=== PATIENT | female | born 1995 | race Caucasian/White ===

== ENCOUNTER 2019-11-08 10:36 | Outpatient (CLI) | payer OTHER, SELFPAY ==
--- NOTE | ~2019-11-08 | US_ITS ---
EXAMINATION: US OB follow up DATE: 11/08/2019 11:47 INDICATION: Gestational diabetes. Size greater than dates. TECHNIQUE: Real-time transabdominal obstetric ultrasound. FINDINGS: Comparison to multiple prior studies sequentially, with oldest reviewed study dated 019. There is a single living fetus in vertex presentation. The placenta is fundal without placenta previ a. cardiac activity and movement is noted with a heart rate of 133 beats per minute. T he amniotic fluid volume is normal. MENG is 13.3 cm. The following biometric data were obtained: BPD: 90mm corresponds to gestational age 36 weeks 3 days. Head circumference: 335mm corresponds to gestational age 38 weeks 2 days. Abdominal circumference: 333mm corresponds to gestational age 37 weeks 2 days. Femur length: 70mm corresponds to gestational age 36 weeks 0 days. Estimated weight: 3048grams using Hadlock method. IMPRESSION: 1. Single living fetus in vertex presentation with an estimated gestational age of 36 weeks 0 days b y inititial ultrasound. Appropriate interval growth. 2. Normal placenta. 3: Normal MENG measures 13.3 cm. Reviewed, dictated and finalized at location A. TRIMMER IMPRESSION: 1. Single living fetus in vertex presentation with an estimated gestational ag e of 36 weeks 0 days by inititial ultrasound. Appropriate interval growt h. 2. Normal placenta. 3: Normal MENG measures 13.3 cm.
== END 2019-11-08 10:37 | disposition home or self-care (01) ==
PROVIDERS: Visit Provider Obstetrics & Gynecology
DX: O24.414 Gestational diabetes mellitus in pregnancy, insulin controlled (principal); Z3A.36 36 weeks gestation of pregnancy
CPT/HCPCS: 76816

== ENCOUNTER 2019-11-23 10:13 | Observation (INO) | payer OTHER, SELFPAY ==
[2019-11-23] VITALS (7 sets, daily range): BP systolic 96–118; BP diastolic 56–80; PULSE 73–93
--- NOTE | ~2019-11-23 | US_ITS ---
EXAMINATION: US OB limited w BPP EXAM DATE: 11/23/2019 12:40 INDICATION: decelerations. Third trimester. TECHNIQUE: Pelvic obstetrical transabdominal sonogram was performed by a technologist. There are mu ltiple grayscale and Doppler images available for interpretation. Comparison is made to prior examina tion from 11/08/2019. FINDINGS: There is a single fetus identified in vertex presentation with a heart rate of 141 beats pe r minute. The placenta is located in the posterior fundal position. There is no sonographic evidence of retroplacental hemorrhage identified. The amniotic fluid index is 10.7 centimeters, which is norm al. BIOPHYSICAL PROFILE (performed by the technologist) breathing (30 sec sustained breathing in 30 minutes): 2 out of 2 movement (3 gross body movements in 30 minutes): 2 out of 2 tone (one episode of dvaopbc-ioccldxgw-dttmofk limb movement): 2 out of 2 Amniotic fluid pocket (2 cm): 2 out of 2 Total score: 8 out of 8 IMPRESSION: 1. Single fetus with heart rate of 141 bpm. 2. Normal biophysical profile score of 8 out of 8. 3. Normal EMNG 10.7 cm. Reviewed, dictated and finalized at location A. POSTER IMPRESSION: 1. Single fetus with heart rate of 141 bpm. 2. Normal biophysical profile score of 8 out of 8. 3. Normal MENG 10.7 cm.
--- NOTE | 2019-11-23 12:27 | OBADM ---
This patient, John Keane, admitted to the OB room OB Post 115 for observation. Patient/family oriented to hospital policies and general routines including ID bracelet, bed and alarms, visiting hours, pain management, procedures, bathroom and other care routines, personal items, smoking policy, room service/diet, and visiting hours. Patient/Family are encouraged to report perceived risks to care and to ask questions if they do not understand what they are told or what they should do.
--- NOTE | 2019-11-26 11:46 | PM.OBTRLD ---
OB - Triage/Final Diagnosis Final Diagnosis (1) heart deceleration: Status: Acute
== END 2019-11-23 13:20 | disposition home or self-care (01) ==
PROVIDERS: Admitting Provider Obstetrics & Gynecology; Visit Provider Obstetrics & Gynecology Gynecology
DX: O36.8330 Maternal care for abnormalities of the fetal heart rate or rhythm, third trimester, not applicable or unspecified (principal); Z3A.38 38 weeks gestation of pregnancy
CPT/HCPCS: 76815; 76819; G0378; G0379

== ENCOUNTER 2019-11-29 06:18 | Inpatient (IN) | payer OTHER, SELFPAY ==
[2019-11-29] VITALS (37 sets, daily range): BP systolic 97–139; BP diastolic 47–87; PULSE 62–102; RESP 14–18; TEMP 36.6–37.1; O2SAT 99–100; BMI 37.8
[2019-11-29 07:15] LABS: Glucose Point of Care 102 (65-105)
[2019-11-29] MEDS: LACTATED RINGERS 1,000 ML 125 ML IV CONT (07:28)
--- NOTE | 2019-11-29 08:06 | LDADM ---
This patient, John Keane, was admitted to Labor/Delivery/Recovery 104 on 11/29/19 at 06:18. Plans for labor, pain management and were discussed with patient. Patient/family oriented to hospital policies and general routines including ID bracelet, bed and alarms, visiting hours, pain management, procedures, bathroom and other care routines, personal items, smoking policy, room service/diet and guest tray routines, security routines, and visiting hours. Patient/Family are encouraged to report perceived risks to care and to ask questions if they do not understand what they are told or what they should do. See OBIX for further documentation.
[2019-11-29 09:12] LABS: Basophils Absolute Auto 0.1 K/mm3 (0.0-0.1); Basophils Percent Auto 0.5 % (0.2-1.2); Eosinophils Absolute Auto 0.1 K/mm3 (0-0.3); Eosinophils Percent Auto 1.3 % (0-4.4); Hematocrit 37.7 % (37.0-47.0); Hemoglobin 11.6 g/dL (12.0-15.0); Immature Granulocyte Absolute 0.06 K/mm3 (0.00-0.031); Immature Granulocyte Percent A 0.5 % (0-0.5); Lymphocytes Absolute Auto 2.27 K/mm3 (0.9-3.2); Lymphocytes Percent Auto 20.6 % (18.3-44.2); Mean Corpuscular HGB Conc 30.8 g/dl (32-36); Mean Corpuscular Hemoglobin 28.2 pg (26-34); Mean Corpuscular Volume 91.5 fl (80-100); Mean Platelet Volume 11.3 fl (7.4-10.4); Monocytes Absolute Auto 1.1 K/mm3 (0.1-0.6); Monocytes Percent Auto 10.3 % (2.6-8.5); Neutrophils Absolute Auto 7.4 K/mm3 (1.3-6.7); Neutrophils Percent Auto 66.8 % (45.5-73.1); Platelet Count Result 307 k/mm3 (150-375); Red Blood Count 4.12 M/mm3 (4.2-5.4); Red Cell Distribution Width 13.9 % (11.5-14.5)
--- NOTE | 2019-11-29 10:45 | WPDOBADMIT ---
Obstetrics - Admit Note Admission Note: record reviewed. No pertinent additions to the history and/or any subsequent changes in the physical findings that are not consistent with the expected course of the were found. Arom clear fluid /-2 Additions to the history and/or subsequent changes in the physical findings follow. None.
[2019-11-29 11:46] LABS: Glucose Point of Care 64 (65-105)
[2019-11-29 11:46] LABS: Glucose Point of Care 69 (65-105)
--- NOTE | 2019-11-29 13:00 | P.PCNOB_ITS ---
OB - Delivery Note Procedure Delivery date: 11/29/19 Procedure: events: Gestational Diabetes Intrapartal events: None Induction method: AROM and per pitocin protocol Delivery monitor: external FHT and external uterine Route of delivery: Laceration description: None Estimated blood loss (mL): 200 Anesthesia type: fentanyl Disposition: floor [place] Baby Date of : 11/29/19 Time of : 12:47 Weeks of gestation at delivery: 39 gender: Female Weight (pounds): 6 Weight (ounces): 11 presentation: vertex position: Left Occiput Anterior Placenta delivery description: Spontaneous cord vessel description: 3 Vessels score one minute: 8 score five minutes: 9
[2019-11-29] MEDS: IBUPROFEN 600 MG TABLET PO ×2 (13:55→23:12)
[2019-11-30 06:01] LABS: Glucose Point of Care 66 (65-105)
[2019-11-30 06:15] LABS: Hematocrit 32.2 % (37.0-47.0); Hemoglobin 10.5 g/dL (12.0-15.0)
[2019-11-30 08:00] VITALS: BP 113/77; PULSE 62; RESP 16; TEMP 36.8; O2SAT 99
--- NOTE | 2019-11-30 08:57 | P.PNOB_ITS ---
OB - PN: Subj Subjective Date/time seen: 11/30/19 08:57 Patient comments: no complaints feeding status: exclusively breast feeding Narrative: prefers to go home today OB - PN: Obj Data Labs CBC & Chem 7: 11/30/19 05:58 Labs: Laboratory Results - last 24 hr 11/29/19 11/29/19 11/29/19 06:52 06:52 10:29 WBC 11.0 H RBC 4.12 L Hgb 11.6 L Hct 37.7 MCV 91.5 MCH 28.2 MCHC 30.8 L RDW 13.9 Plt Count 307 MPV 11.3 H Immature Gran % (Auto) 0.5 Neut % (Auto) 66.8 Lymph % (Auto) 20.6 [place] % (Auto) 10.3 H Eos % (Auto) 1.3 Baso % (Auto) 0.5 Lymph # (Auto) 2.27 [place] # (Auto) 1.1 H Eos # (Auto) 0.1 Baso # (Auto) 0.1 Abs Immat Gran (auto) 0.06 H Absolute Neuts (auto) 7.4 H Absolute Nucleated RBC 0.0 Nucleated RBC % 0.0 POC Capillary Glucose 64 L Blood Type A Positive Antibody Screen Negative 11/29/19 11/30/19 11/30/19 11:41 05:58 05:58 WBC RBC Hgb 10.5 L Hct 32.2 L MCV MCH MCHC RDW Plt Count MPV Immature Gran % (Auto) Neut % (Auto) Lymph % (Auto) [place] % (Auto) Eos % (Auto) Baso % (Auto) Lymph # (Auto) [place] # (Auto) Eos # (Auto) Baso # (Auto) Abs Immat Gran (auto) Absolute Neuts (auto) Absolute Nucleated RBC Nucleated RBC % POC Capillary Glucose 69 66 Blood Type Antibody Screen OB - PN A/P Plan day: 1 Plan: routine care, discharge home, follow up 6 weeks and other (Plans POP. Rx Slynd to start in 3 wks) Time Spent With Patient Time: Total time spent is greater than 50% in coordination of care (as documented) at patient's floor/unit and/or counseling patient: Exam : Bimanual exam- vagina & uterus: other (Uterus firm, nt @U)
[2019-11-30] MEDS: IBUPROFEN 600 MG TABLET PO (09:17)
[2019-11-30] MEDS: MULTIVIT/MIN/PREN/FOL AC/IRON TABLET 1 TAB PO (09:18)
[2019-11-30 10:55] LABS: Rapid Plasma Reagin Non-Reactive (NonReactive)
--- NOTE | 2019-11-30 11:58 | PC.NURSE ---
Patient viewed the discharge video Mother & Baby Care, The First Two Weeks . Patient was given the opportunity and encouraged to ask questions. Patient verbalized understanding of information shared and has been given the mother/baby guide for home reference.
--- NOTE | 2019-11-30 13:15 | PC.NURSE ---
Mother called out for assist with feeding. Observed mother is able to independently latch with appropriate positioning/alignment. Reviewed positioning/alignment in cross cradle, holding breast in U hold and guided asymmetrical latch on. Discussed rational for each. Infant nursed eagerly, with steady draws and frequent swallowing noted. Reviewed signs of a correct latch, effective nursing and suck swallow ratio. was able to maintain latch without discomfort to mother. Demonstrated how to adjust latch more deeply while feeding. Nipple care reviewed. Mother voiced understanding of information shared. Reviewed feeding cues, frequencies, duration of feedings, feeding elimination flow sheet, and signs of adequate intake. Mother is feeding as required and waking to feed if needed. is currently meeting outcomes for weight, output, jaundice and feeding frequencies. Mother states she feels confident to continue effective at home. Reviewed transition to breast milk, signs of adequate intake, and engorgement/relief. Instructed to call ICP if intake/output less than required. Reviewed regular medications mother is taking. Information provided per Marsha. Reviewed community resources on the [facility] website and in the Mom/Baby guide. Information on outpatient services provided. Mother has no further questions at this time.
[2019-12-02 12:16] VITALS: BP 130/84; PULSE 76; RESP 20; TEMP 37
--- NOTE | 2019-12-25 09:31 | PM.OBDSVD ---
DS: Diagnosis Admitting Diagnosis Admitting Diagnosis: Encounter for supervision of normal , unspecified, third trimester OB - DS: Summary OB Procedures : NST OB Procedures Intrapartum: Spontaneous Vag Delivery OB Procedures: : None Peripartum Data Delivery Method: Natural Vaginal Laceration description: Perineal - 2nd Degree complications: none Time Spent with Patient Time attestation: Total time spent providing and/or coordinating discharge services: Discharge Plan Discharge Attending physician on discharge: Kimmy Boswell Discharging Clinician: Amrit Mata Patient Disposition: Home, Self-Care Activity: may shower and pelvic rest Diet: regular Discharge Instructions: Education: Mom and Baby Guide Given to: Mother Follow-Up: Call your delivering provider's office for an appointment to be seen in: 6 Weeks Mom and baby should come to the [facility] for the follow-up appointment. Appointment Date/Time: Monday, December 02, 2019 at 11:00 am What to expect at your follow-up visit: Blood Pressure Check Physical Assessment Call [phone] if you are unable to keep your appointment time. BREAST CARE: 1. Wear a snug supportive bra. 2. For engorgement discomfort: Breast Feeding: A. Apply warm moist washcloths B. Express milk as needed to relieve engorgement C. Wear loose clothing 3. For sore nipples: A. Identify correct latch-on B. Apply warm moist washcloths before and after nursing C. Air dry nipples after nursing D. May apply Lansinoh cream to nipples EPISIOTOMY/PERINEAL CARE: 1. Until bleeding stops, use your claire bottle after urinating 2. Change your pad frequently throughout the day 3. You may take sitz baths several times a day (fill your bathtub with warm water and soak for 20 minutes.) Do NOT bathe in the water 4. No tub baths until seen by your physician - You may shower ACTIVITY: 1. Rest as much as possible. 2. Do not exercise or lift anything heavier than your baby (such as laundry or other children.) 3. Avoid stairs or driving as much as possible. 4. Do not put anything into the vagina. No douching, tampons, or sexual activity until seen by physician. NOTIFY PHYSICIAN IF YOU HAVE ANY QUESTIONS OR IF ANY OF THE FOLLOWING SYMPTOMS OCCUR: 1. If your episiotomy or incision becomes red, swollen, or more painful than what you have experienced in the hospital. 2. If your vaginal bleeding becomes foul smelling. 3. If your vaginal bleeding becomes more heavy than a period or if your bleeding changes from pink to bright red. However, you may pass an occasional walnut-sized clot once or twice for the first week . 4. If you experience a sharp, shooting pain in you calves. 5. If you discover a hard, reddened area on your breast or if you experience flu-like symptoms. DIET: 1. Eat regular, well-balanced meals. 2. Drink plenty of fluids daily. For , drink to thirst. Stand Alone Forms: General Discharge Information Follow-up/Referrals: Amrit Mata MD [Physician] - 6 Weeks Discharge Medications: New Slynd 4 mg (28) tablet 4 mg PO DAILY 24 Days Qty: 24 RF: 6 Continued ergocalciferol (vitamin D2) [Vitamin D2] 1,250 mcg (50,000 unit) Capsule 50,000 unit PO WEEKLY RF: 0 PNV cmb#95-ferrous fumarate-FA [] 28 mg iron- 800 mcg Tablet 1 tablet PO DAILY RF: 0 Discontinued famotidine [Pepcid AC] 20 mg Tablet 20 mg PO BID RF: 0 Novolin N NPH U-100 Insulin 100 unit/mL Suspension 16 unit SUBCUT HS RF: 0 Date of admission: 11/29/19 06:18 Primary Care Provider: UNKNOWN,DOCTOR Admitting Provider: Amrit Mata Discharge Date/Time: 11/30/19 14:45 Attending physician on admission: Kimmy Boswell Condition: Stable
== END 2019-11-30 14:45 | disposition home or self-care (01) | DRG 560 ==
LOC: ANHLDR 09:52 → ANHOB2 11-30 09:00 → ANHLDR 12-02 11:30 → ANHOB2 12-02 11:30
PROVIDERS: Admitting Provider Obstetrics & Gynecology; Visit Provider Obstetrics & Gynecology Gynecology
DX: O24.429 Gestational diabetes mellitus in childbirth, unspecified control (principal); Z3A.39 39 weeks gestation of pregnancy; Z37.0 Single live birth; Z23 Encounter for immunization
CPT/HCPCS: 36415; 85014; 85018; 85025; 86592; 86850; 86900; 86901; A9270; J2590; J3010; J7120

== ENCOUNTER 2021-03-28 10:28 | Emergency (ER) | payer OTHER, SELFPAY ==
[2021-03-28 10:38] VITALS: BP 133/75; PULSE 74; RESP 16; TEMP 36.6; O2SAT 100
[2021-03-28 10:41] VITALS: BP 133/75; PULSE 74; RESP 16; TEMP 36.6; O2SAT 100
--- NOTE | 2021-03-28 11:05 | ED.EAR ---
HPI - Ear Problem General Chief complaint: Ear Stated complaint: Ear pain Time Seen by Provider: 03/28/21 11:08 Source: patient and RN notes reviewed Mode of arrival: ambulatory Limitations: no limitations History of Present Illness HPI Narrative: 26-year-old female presents with concern for right ear discomfort, decreased hearing, feeling of fullness. Reports she went swimming earlier this week. Reports she used an lvek-sng-jfrjvsx wax removal one time yesterday without relief of symptoms. She right ear pain, nasal congestion, rhinorrhea, sore throat, cough. Denies fever, body aches MD Complaint: decreased hearing Related Data Home Medications Medication Instructions Recorded Confirmed PNV cmb#95-ferrous fumarate-FA 1 tablet PO DAILY 11/10/19 11/10/19 [] ergocalciferol (vitamin D2) 50,000 unit PO WEEKLY 11/10/19 11/10/19 [Vitamin D2] Allergies Allergy/AdvReac Type Severity Reaction Status Date / Time No Known Allergies Allergy Unverified 06/30/19 16:18 Review of Systems Review of Systems: Narrative: CONSTITUTIONAL: Denies malaise, chills, sweats, or fever. EYES: Denies visual changes, redness, or discharge. ENT: Denies rhinorrhea, congestion, sinus pain,and sore throat.. Reports mild right ear pain, decreased hearing, feeling of fullness CARDIOVASCULAR: Denies chest pain, palpitations, or edema. RESPIRATORY: Denies cough or dyspnea. GASTROINTESTINAL: Denies abdominal pain, nausea, vomiting, diarrhea SKIN: Denies rash or itching. MUSCULOSKELETAL: Denies myalgia. NEUROLOGIC: Denies headache. All systems reviewed & are unremarkable except as noted in HPI and below PMFSH Family History Family History (Updated 11/10/19 @ 13:52 by Denise Anand RN) Grandparent Diabetes mellitus Grandparent Colon cancer Sibling Acute myocardial infarction Father Asthma Social History Social History Smoking status: Never smoker Second hand tobacco smoke exposure: No Substance use: never Gender identity (if verbalized by the patient): Female Spiritual care concerns: No Comments At time of signature, agree with nursing past medical, surgical, social and family history. There is no relevant family history pertinent to the presenting complaint Exam Narrative: Exam Narrative: GENERAL: Well-appearing, well-nourished, and in no acute distress. HEAD: Normocephalic EYES: PERRLA, conjunctivae clear ENT: Nares clear, turbinates pink, no discharge. Mucous membranes moist. Left TM pearly walters with dull light reflex, right TM not visible due to cerumen impaction; no tragal tenderness. Oropharynx erythematous without lesions. Tonsils enlarged and without exudate, no drooling, no hoarseness, no trismus, uvula midline. NECK: Supple. No lymphadenopathy CHEST: No respiratory distress, speaks in full sentences. HEART: Regular rate and rhythm. No murmur heard. SKIN: Warm, dry, no rash. NEURO: Alert and oriented x3. PSYCH: Normal mood and affect Course Course Emergency Course: Patient is aware of diagnosis, understands and agrees to treatment plan. Anticipatory guidance given. Patient agrees to follow-up as directed and is aware of reasons to seek care at the emergency department. Portions of this record may have been created with voice recognition software Vital Signs Vital signs: Vital Signs Temperature 97.8 F 03/28/21 10:38 Pulse Rate 74 03/28/21 10:38 Respiratory Rate 16 03/28/21 10:38 Blood Pressure 133/75 03/28/21 10:38 Pulse Oximetry 100 03/28/21 10:38 Temperature 97.8 F 03/28/21 10:41 Pulse Rate 74 03/28/21 10:41 Respiratory Rate 16 03/28/21 10:41 Blood Pressure 133/75 03/28/21 10:41 Pulse Oximetry 100 03/28/21 10:41 Reviewed. Procedures Ear Wax Removal Right Ear: Ear Wax Removal Date: 03/28/21 Ear Wax Removal Time: 11:15 Cerumenolytic Used: 5-10% Sodium Bicarb solution Results: Re-examined: cerumen removed completely TM
== END 2021-03-28 11:34 | disposition home or self-care (01) ==
PROVIDERS: Emergency Provider Nurse Practitioner
DX: H60.501 Unspecified acute noninfective otitis externa, right ear (principal); H61.21 Impacted cerumen, right ear
CPT/HCPCS: 69209; 99213; G0463